=== PATIENT | female | born 1995 | race Caucasian/White ===

== ENCOUNTER 2018-02-07 19:10 | Emergency (ER) | payer OTHER ==
[~2018-02-07] VITALS: Ht 167.6 cm; Wt 68.8 kg
[2018-02-07 19:13] VITALS: BP 150/89
[2018-02-07] MEDS ORDERED: IBUPROFEN 200 MG TABLET PO ONE (20:30)
[2018-02-07] MEDS ORDERED: CYCLOBENZAPRINE 10 MG TABLET PO ONE (20:30)
[2018-02-07] MEDS ORDERED: CYCLOBENZAPRINE 10 MG TABLET ONE (20:31)
[2018-02-07] MEDS ORDERED: IBUPROFEN 200 MG TABLET ONE (20:31)
== END 2018-02-07 20:42 | disposition home or self-care (01) ==
LOC: ED 20:00
DX: S16.1XXA Strain of muscle, fascia and tendon at neck level, initial encounter (principal); Z90.81 Acquired absence of spleen; Z88.0 Allergy status to penicillin; W01.198A Fall on same level from slipping, tripping and stumbling with subsequent striking against other object, initial encounter; Y93.89 Activity, other specified; Y92.59 Other trade areas as the place of occurrence of the external cause; Y99.8 Other external cause status
CPT/HCPCS: 72020; 72050; 99284

== ENCOUNTER 2018-06-06 17:31 | Emergency (ER) | payer OTHER ==
[~2018-06-06] VITALS: Ht 167.6 cm; Wt 69.0 kg
[2018-06-06 17:40] VITALS: BP 126/88
--- NOTE | 2018-06-06 19:26 | NUR ---
Patient/Caregiver given discharge instructions and they have confirmed that they understand the instructions. Patient ambulatory with steady gait with crutches.
== END 2018-06-06 19:27 | disposition home or self-care (01) ==
LOC: ED 19:11
DX: S93.491A Sprain of other ligament of right ankle, initial encounter (principal); Z88.0 Allergy status to penicillin; X50.1XXA Overexertion from prolonged static or awkward postures, initial encounter; Y93.89 Activity, other specified; Y92.89 Other specified places as the place of occurrence of the external cause; Y99.8 Other external cause status
CPT/HCPCS: 99283

== ENCOUNTER 2018-07-23 05:34 | Day surgery (SDC) | payer OTHER ==
[~2018-07-23] VITALS: Ht 167.6 cm; Wt 67.7 kg
[~2018-07-23 05:34] MED LIST: FOLI-17 PO; MULT1TAB60 PO
[2018-07-23] MEDS ORDERED: LIDOCAINE 1%-EPI 1:100K, 30ML ONE (06:11)
[2018-07-23 06:16] LABS: HCG UR SG 1.011 (1.003-1.030)
[2018-07-23] MEDS ORDERED: LACTATED RINGERS 1,000 ML IV SCH (06:19)
[2018-07-23] MEDS ORDERED: FENTANYL PF 250 MCG/5ML ONE (06:25)
[2018-07-23] MEDS ORDERED: MIDAZOLAM 1 MG/ML, 2ML ONE (06:25)
[2018-07-23] MEDS ORDERED: GABAPENTIN 300 MG CAPSULE PO ONE (06:30)
[2018-07-23] MEDS ORDERED: SCOPOLAMINE PATCH, 1.5MG PATCH.TD72 TD ONE (06:30)
[2018-07-23] MEDS ORDERED: ACETAMINOPHEN 500 MG TABLET PO ONE (06:30)
[2018-07-23] MEDS ORDERED: OxyconTIN ER 20 MG TAB.ER PO ONE (06:30)
[2018-07-23 06:39] VITALS: BP 108/74
[2018-07-23] MEDS ORDERED: PROMETHAZINE 12.5 MG SUPP PR PRN (07:00)
[2018-07-23] MEDS ORDERED: HALOPERIDOL 5 MG/ML IV PRN ×2 (07:00)
[2018-07-23] MEDS ORDERED: PROMETHAZINE 25 MG/ML, 1ML IV PRN (07:00)
[2018-07-23] MEDS ORDERED: PROMETHAZINE 25 MG/ML, 1ML IM PRN ×2 (07:00)
[2018-07-23] MEDS ORDERED: HYDROmorphone 2 MG/ML, 1ML IVPush PRN (07:00)
[2018-07-23] MEDS ORDERED: PROMETHAZINE 25 MG SUPP PR PRN (07:00)
[2018-07-23] MEDS ORDERED: FENTANYL PF 100 MCG/2ML IV PRN (07:00)
[2018-07-23] MEDS ORDERED: MEPERIDINE/PF 25MG/0.5ML IVPush PRN (07:00)
[2018-07-23] MEDS ORDERED: hydrALAzine 20 MG/ML, 1ML IV PRN (07:00)
[2018-07-23] MEDS ORDERED: MORPHINE SULFATE 4 MG/ML, 1ML IVPush PRN (07:00)
[2018-07-23] MEDS ORDERED: ONDANSETRON ODT 8 MG PO PRN (07:00)
[2018-07-23] MEDS ORDERED: OXYcodone 5 MG/5 ML ORAL.SOL UDC PO PRN (07:00)
[2018-07-23] MEDS ORDERED: ONDANSETRON 2MG/ML, 2ML IV PRN (07:00)
[2018-07-23] MEDS ORDERED: LABETALOL 5MG/ML, 20ML IV PRN (07:00)
[2018-07-23] MEDS ORDERED: PROPOFOL 10 MG/ML, 20ML ONE (07:12)
[2018-07-23] MEDS ORDERED: ROCURONIUM 10MG/ML,5ML ONE (07:12)
[2018-07-23] MEDS ORDERED: GLYCOPYRROLATE 0.2MG/1ML, 5ML ONE (07:12)
[2018-07-23] MEDS ORDERED: NEOSTIGMINE 1 MG/ML, 10ML ONE (07:12)
[2018-07-23] MEDS ORDERED: DEXAMETHASONE 4 MG/ML, 1ML ONE (07:12)
[2018-07-23] MEDS ORDERED: PROMETHAZINE 25 MG/ML, 1ML ONE (07:58)
[2018-07-23] MEDS ORDERED: OXYcodone 5 MG/5 ML ORAL.SOL UDC ONE (07:58)
[2018-07-23] MEDS ORDERED: MEPERIDINE/PF 25MG/ML,1ML ONE (07:58)
== END 2018-07-23 09:45 | disposition home or self-care (01) ==
LOC: OUT 05:34
PROVIDERS: ATTEND Otolaryngology
DX: J35.01 Chronic tonsillitis (principal); J03.91 Acute recurrent tonsillitis, unspecified; Z72.89 Other problems related to lifestyle
CPT/HCPCS: 42826; 81025; 88304; J1100; J2175; J2250; J2550; J2704; J2710; J3010; J3490; J7120

== ENCOUNTER → 2018-11-16 | Outpatient (CLI) | payer OTHER | END | disposition home or self-care (01) | LOC: CFH 07:58 | PROVIDERS: ATTEND Nurse Practitioner | DX: S93.491A Sprain of other ligament of right ankle, initial encounter (principal); X58.XXXA Exposure to other specified factors, initial encounter; Y93.89 Activity, other specified; Y92.89 Other specified places as the place of occurrence of the external cause; Y99.8 Other external cause status ==